=== PATIENT | male | born 1990 | race African-American/Black ===

== ENCOUNTER 2023-01-28 17:17 | Emergency (ER) | payer OTHER ==
[~2023-01-28] VITALS: Ht 170.2 cm; Wt 90.4 kg
[2023-01-28] MEDS ORDERED: ACETAMINOPHEN 325 MG TAB PO ONE (20:05)
[2023-01-28 20:17] LABS: RSV AMPLIFICATION NEGATIVE (NEGATIVE)
[2023-01-28] MEDS ORDERED: BENZ200C70 PO (20:34)
[2023-01-28] MEDS ORDERED: IBUP-1022 PO (20:34)
[2023-01-28 20:44] VITALS: BP 126/72; TEMP 97.4; O2SAT 99
== END 2023-01-28 20:45 | disposition home or self-care (01) ==
LOC: M ED 17:17
DX: R50.9 Fever, unspecified (principal); B34.9 Viral infection, unspecified; F17.200 Nicotine dependence, unspecified, uncomplicated

== ENCOUNTER 2023-06-06 09:42 | Emergency (ER) | payer OTHER ==
[~2023-06-06] VITALS: Ht 170.2 cm; Wt 97.1 kg
[~2023-06-06 09:42] MED LIST: BENZ200C70 PO; IBUP-1022 PO
[2023-06-06] MEDS: IBUPROFEN 800 MG TAB PO ONE (10:43)
[2023-06-06 11:09] LABS: RSV AMPLIFICATION NEGATIVE (NEGATIVE)
[2023-06-06] MEDS: ACETAMINOPHEN 500 MG TAB PO ONE (11:24)
[2023-06-06] MEDS ORDERED: ONDA4TAB6 PO (11:27)
[2023-06-06] MEDS ORDERED: IBUP-1022 PO (11:27)
[2023-06-06 11:40] VITALS: BP 125/66; TEMP 101.9; O2SAT 97
== END 2023-06-06 11:36 | disposition home or self-care (01) ==
LOC: M ED 09:42
DX: U07.1 COVID-19 (principal); F17.200 Nicotine dependence, unspecified, uncomplicated